=== PATIENT | male | born 1950 | race Asian ===

== ENCOUNTER 2022-01-10 01:45 | Inpatient (IN) | payer MEDICARE, OTHER ==
[~2022-01-10] VITALS: Ht 160 cm; Wt 65.8 kg
[2022-01-10] MEDS ORDERED: ASPIRIN 325 MG TABLET ONE (01:53)
--- NOTE | 2022-01-10 01:57 | NUR ---
[id number] from home, c/o generalized weakness x 3hrs SHANK ARCHER, BLE edema/swelling. On room air, breathing evenly and unlabored. Connected to the monitor and pulse ox. Kept comfortable, will continue to monitor accordingly.
[2022-01-10] MEDS ORDERED: ASPIRIN 325 MG TABLET PO ONE (02:00)
--- NOTE | 2022-01-10 02:13 | NUR ---
covid swab collected and sent to lab.
[2022-01-10 02:45] LABS: BASOPHILS % (AUTO) 0.4 % (0.0-2.0); EOSINOPHILS % (AUTO) 0.9 % (0.0-6.0); HEMATOCRIT 32 % (39-51); HEMOGLOBIN 10.7 g/dL (13.5-17.5); LYMPHOCYTES # (AUTO) 1.1 K/uL (0.8-4.8); MEAN CORPUSCULAR HGB CONC 33 g/dl (31.0-36.0); MEAN CORPUSCULAR VOLUME 87 fL (80-96); MONOCYTES # (AUTO) 0.7 K/uL (0.1-1.30); MONOCYTES % (AUTO) 7.5 % (2.0-12.0); NEUTROPHILS # (AUTO) 7.6 K/uL (1.8-8.9); NEUTROPHILS % (AUTO) 79.2 % (43.0-81.0); PLATELET COUNT (AUTO) 399 K/uL (150-450); RED BLOOD CELL COUNT(AUTO) 3.68 MIL/uL (4.5-6.0); WHITE BLOOD COUNT (AUTO) 9.5 K/uL (4.3-11.0)
[2022-01-10 02:46] LABS: CARBON DIOXIDE 32 mmol/L (21-32); CHLORIDE 97 mmol/L (98-107); CREATININE 2.1 mg/dL (0.6-1.3); GLUCOSE 154 mg/dL (74-106); SODIUM SERUM 136 mmol/L (136-145); UREA NITROGEN, BLOOD 19 mg/dL (7-18)
--- NOTE | 2022-01-10 03:09 | NUR ---
[facility] PAGED
[2022-01-10] MEDS ORDERED: FUROSEMIDE 40 MG/4 ML VIAL ONE (03:27)
[2022-01-10] MEDS ORDERED: FUROSEMIDE 40 MG/4 ML VIAL IV ONE (03:30)
[2022-01-10] MEDS ORDERED: Z GUARD REMEDY 4 OZ OINT TP PRN ×2 (04:00→16:00)
[2022-01-10] MEDS ORDERED: ONDANSETRON HCL/PF 4 MG/2 ML VIAL IVP PRN ×2 (04:00→16:00)
[2022-01-10] MEDS ORDERED: ACETAMINOPHEN 325 MG TABLET PO PRN ×2 (04:00→16:00)
[2022-01-10] MEDS ORDERED: POTASSIUM CHLORIDE 20 MEQ TAB.PRT.SR PO ONE ×2 (04:00→04:11)
[2022-01-10] MEDS ORDERED: DEXTROSE 50%-WATER 50 ML DISP.SYRIN IV PRN ×2 (04:00→16:00)
--- NOTE | 2022-01-10 07:51 | NUR ---
ROOM GIVEN 315-9
--- NOTE | 2022-01-10 07:56 | NUR ---
PT REPORT GIVEN TO BENEDICT BENAVIDEZ
[2022-01-10 08:00] VITALS: BP 137/62
--- NOTE | 2022-01-10 08:44 | NUR ---
PT TRANSFERRED TO 315-[address] [facility] ACLS PROTOCOL. WARM HANDOFF GIVEN TO BENEDICT BENAVIDEZ.
[2022-01-10] MEDS: BLOOD SUGAR DIAGNOSTIC 1 EACH STRIP IN SCH ×4 (08:58→22:20)
[2022-01-10] MEDS ORDERED: HEPARIN SODIUM, PORCINE 5000 UNITS/1 ML VIAL SQ SCH (09:00)
[2022-01-10] MEDS: PANTOPRAZOLE 40 MG TABLET.DR PO SCH (09:00)
--- NOTE | 2022-01-10 09:00 | NUR ---
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 PATIENT IS ALERT AND ORIENTED X4, VERBALLY RESPONSIVE, NO SIGNS OF ACUTE DISTRESS. PATIENT ON ROOM AIR, NOTED WITH SOB WITH EXERTION. SPO2 98% ON ROOM AIR. DENIES ANY PAIN AT THIS TIME. NOTED WITH LEFT WRIST #20G PERIPHERAL LINE, PATENT AND INTACT, FLUSHES WELL. PLACED PATIENT ON TUBING OILER CURRENTLY SHOWING SINUS TACH, HR @ 110. BODY ASSESSMENT DONE. NOTED WITH BLOOD GLUCOSE MONITORING PATCH ON LEFT DELTOID. NOTED WITH EDEMA ON LEFT FOOT AND DRY SCABS. ALSO NOTED WITH LEFT LEG RASH WITH DRY SKIN. WOUND CARE CONSULT ORDERED. ROUTINE ADMISSION CARE RENDERED. VITAL SIGNS TAKEN. ORIENTED PATIENT TO STAFF AND ROOM. WILL CONTINUE TO MONITOR PATIENT.
[2022-01-10] MEDS: INSULIN REGULAR, HUMAN 100 UNIT/ML 3 ML VIAL SQ PRN ×3 (09:03→16:34)
[2022-01-10] MEDS ORDERED: LINA5TAB PO (09:23)
[2022-01-10] MEDS ORDERED: EMPA10TA PO (09:23)
[2022-01-10] MEDS ORDERED: ATOR40TA PO (09:23)
[2022-01-10] MEDS ORDERED: CLON0.1T PO (09:23)
[2022-01-10] MEDS ORDERED: DILT180T11 PO (09:23)
[2022-01-10] MEDS ORDERED: ISOS30TA86 PO (09:23)
[2022-01-10] MEDS ORDERED: FURO20TA4 PO (09:23)
[2022-01-10] MEDS ORDERED: HYDR100T27 PO (09:23)
[2022-01-10] MEDS ORDERED: POTA10TA10 PO (09:23)
[2022-01-10] MEDS ORDERED: CARV6.252 PO (09:23)
[2022-01-10] MEDS ORDERED: ALBU18HF2 INH (09:24)
[2022-01-10 10:55] LABS: ABG OXYGEN SATURATION 96.4 % (92.0-98.5); ABG PCO2 38.7 mmHg (35.0-45.0); ABG PH 7.501 (7.350-7.450); ABG PO2 88.2 mmHg (75.0-100.0); AaDO2 65.8 mmHg; MetHb 0.2 % (0.0-1.5); O2Hb 96.2 % (94.0-97.0); SITE, ABG Right Radial; VENT MODE, BG 2L NC
[2022-01-10] MEDS ORDERED: IV D5/ 0.9% NACL 1,000 ML IV PRN (11:00)
[2022-01-10] MEDS: methylPREDNISolone SOD SUCC 125 MG/2ML VIAL IV SCH ×2 (11:04→16:14)
[2022-01-10] MEDS: LEVOFLOXACIN 500 MG /D5W 100ML 100 ML IV SCH (11:22)
[2022-01-10] MEDS: IPRATROPIUM NEB FS 0.5 MG/2.5 ML AMPUL.NEB NEB SCH ×4 (11:30→23:35)
[2022-01-10] MEDS ORDERED: *INSULIN REGULAR(HUMULIN R)HUM 100 UNIT/ML VIAL SQ PRN (16:00)
[2022-01-10] MEDS ORDERED: CLONIDINE HCL 0.1 MG TABLET PO PRN (16:00)
[2022-01-10] MEDS: hydrALAZINE HCL 50 MG TABLET PO SCH (16:16)
[2022-01-10] MEDS: CARVEDILOL 6.25 MG TABLET PO SCH (16:16)
[2022-01-10] MEDS: ALBUTEROL FS 2.5 MG/0.5 ML VIAL.NEB NEB SCH ×2 (16:21→20:15)
[2022-01-10] MEDS ORDERED: BLOOD SUGAR DIAGNOSTIC 1 EACH STRIP VI SCH (17:30)
--- NOTE | 2022-01-10 18:54 | NUR ---
RN CLOSING NOTE PATIENT IN BED AWAKE, A/O X4, VERBALLY RESPONSIVE NO SIGNS OF ACUTE DISTRESS NOTED. CURRENTLY ON ROOM AIR, TOLERATING WELL. NOTED WITH SOB UPON EXERTION, ENCOURAGED PATIENT TO USE OXYGEN IF NEEDED FOR SOB. IV ACCESS ON LEFT WRIST INTACT AND PATENT, WITH D5NS @ 75 ML/HR RUNNING. ALL DUE MEDS GIVEN, TAKEN WELL. SAFETY MEASURE MAINTAINED, BED IN LOWEST AND LOCKED POSITION, SIDE RAILS UP X2, CALL LIGHT PLACED WITHIN EASY REACH. WILL ENDORSE TO NEXT SHIFT FOR CONTINUITY OF CARE.
--- NOTE | 2022-01-10 19:30 | NUR ---
RN OPENING NOTE RECEIVED PATIENT IN BED, WITH HOB ELEVATED, ALERT AND ORIENTED X4. ABLE TO MAKE NEEDS KNOWN. AFEBRILE AND NOT IN ANY FORM OF ACUTE DISTRESS. BREATHING EVEN AND NON LABORED. NO C/O PAIN OR DISCOMFORT AT THIS TIME. ON TELE MONITORING SR 64. WITH IV ACCESS ON L WRIST 20G RUNNING WITH D5NS AT 75ML/HR. SAFETY MEASURES IN PLACE. KEPT BED IN LOCKED AND IN LOW POSITION. SIDE RAILS UP X2. ADVISE YO USE THE CALL LIGHT WHEN IN NEED OF ASSISTANCE.
[2022-01-10 20:00] VITALS: BP 151/60
[2022-01-10] MEDS ORDERED: ENOXAPARIN SODIUM 30 MG/0.3 ML DISP.SYRIN SQ SCH (21:00)
[2022-01-10] MEDS ORDERED: TEMAZEPAM 7.5 MG CAPSULE PO PRN (22:30)
[2022-01-11] VITALS: BP 147/71
[2022-01-11] MEDS: IPRATROPIUM NEB FS 0.5 MG/2.5 ML AMPUL.NEB NEB SCH ×4 (04:01→15:30)
--- NOTE | 2022-01-11 04:02 | NUR ---
pt recvd awake and verbal on room air, no sob or respiratory distress noted throughout shift. Neb tx given and misael well.
[2022-01-11 05:00] VITALS: BP 146/76
[2022-01-11 05:14] LABS: ABG BASE EXCESS 3.9 mmol/L; ABG PCO2 36.6 mmHg (35.0-45.0); ABG PH 7.491 (7.350-7.450); ABG PO2 71.8 mmHg (75.0-100.0); COHb 0.3 % (0.5-1.5); MetHb 0.2 % (0.0-1.5); O2Hb 93.5 % (94.0-97.0); SITE, ABG Right Radial; VENT MODE, BG ROOM AIR
[2022-01-11] MEDS ORDERED: ATORVASTATIN 40 MG TABLET PO SCH (06:00)
[2022-01-11] MEDS: BLOOD SUGAR DIAGNOSTIC 1 EACH STRIP IN SCH ×2 (06:30→12:01)
[2022-01-11] MEDS: INSULIN REGULAR, HUMAN 100 UNIT/ML 3 ML VIAL SQ PRN ×2 (06:37→12:06)
--- NOTE | 2022-01-11 07:09 | NUR ---
RN CLOSING NOTE PATIENT IN BED, WITH HOB ELEVATED, ALERT AND ORIENTED X4. ABLE TO MAKE NEEDS KNOWN. AFEBRILE AND NOT IN ANY FORM OF ACUTE DISTRESS. BREATHING EVEN AND NON LABORED. NO C/O PAIN OR DISCOMFORT AT THIS TIME. ON TELE MONITORING SR 70S WITH PAC. WITH IV ACCESS ON L WRIST 20G RUNNING WITH D5NS AT 75ML/HR. SAFETY MEASURES IN PLACE. KEPT BED IN LOCKED AND IN LOW POSITION. SIDE RAILS UP X2. ADVISE YO USE THE CALL LIGHT WHEN IN NEED OF ASSISTANCE. WILL ENDORSE CARE TO DAY SHIFT NURSE.
--- NOTE | 2022-01-11 07:30 | NUR ---
RN OPENING NOTE RECEIVED PATIENT IN BED, WITH HOB ELEVATED, ALERT AND ORIENTED X4. ABLE TO MAKE NEEDS KNOWN. AFEBRILE AND NOT IN ANY FORM OF ACUTE DISTRESS. BREATHING EVEN AND NON LABORED. NO C/O PAIN OR DISCOMFORT AT THIS TIME. ON TELE MONITORING SR . WITH IV ACCESS ON L WRIST 20G INTACT. SAFETY MEASURES IN PLACE. KEPT BED IN LOCKED AND IN LOW POSITION. SIDE RAILS UP X2. WILL CONTINUE TO MONITOR.
[2022-01-11] MEDS: ALBUTEROL FS 2.5 MG/0.5 ML VIAL.NEB NEB SCH ×3 (07:46→15:30)
[2022-01-11] MEDS: PANTOPRAZOLE 40 MG TABLET.DR PO SCH (07:49)
[2022-01-11 07:52] LABS: BASOPHILS % (AUTO) 0.1 % (0.0-2.0); CALCIUM, SERUM 9.7 mg/dL (8.5-10.1); CREATININE 2.3 mg/dL (0.6-1.3); HEMATOCRIT 33 % (39-51); HEMOGLOBIN 10.8 g/dL (13.5-17.5); LYMPHOCYTES # (AUTO) 0.9 K/uL (0.8-4.8); LYMPHOCYTES % (AUTO) 9.4 % (20.0-44.0); MEAN CORPUSCULAR HGB CONC 33 g/dl (31.0-36.0); MEAN CORPUSCULAR VOLUME 88 fL (80-96); MONOCYTES # (AUTO) 0.5 K/uL (0.1-1.30); MONOCYTES % (AUTO) 4.9 % (2.0-12.0); NEUTROPHILS # (AUTO) 8.5 K/uL (1.8-8.9); NEUTROPHILS % (AUTO) 85.6 % (43.0-81.0); PHOSPHORUS 3.9 mg/dL (2.5-4.9); PLATELET COUNT (AUTO) 378 K/uL (150-450); POTASSIUM 3.8 mmol/L (3.5-5.1); RED BLOOD CELL COUNT(AUTO) 3.78 MIL/uL (4.5-6.0)
[2022-01-11] MEDS ORDERED: DILTIAZEM HCL CD 180 MG PO SCH (09:00)
[2022-01-11] MEDS ORDERED: LINAGLIPTIN 5 MG TABLET PO SCH (09:00)
[2022-01-11] MEDS ORDERED: FUROSEMIDE 20 MG TABLET PO SCH (09:00)
[2022-01-11] MEDS ORDERED: POTASSIUM CHLORIDE 10 MEQ TABLET.SA PO SCH (09:00)
[2022-01-11] MEDS ORDERED: ISOSORBIDE MONONITRATE (30MG) 30 MG TAB.SR.24H PO SCH (09:00)
[2022-01-11] MEDS: CARVEDILOL 6.25 MG TABLET PO SCH (09:35)
[2022-01-11 09:36] VITALS: BP 149/95
[2022-01-11] MEDS: hydrALAZINE HCL 50 MG TABLET PO SCH (09:36)
[2022-01-11] MEDS: methylPREDNISolone SOD SUCC 125 MG/2ML VIAL IV SCH (09:37)
[2022-01-11] MEDS: LEVOFLOXACIN 500 MG /D5W 100ML 100 ML IV SCH (10:41)
--- NOTE | 2022-01-11 16:00 | NUR ---
RN NOTES DISCHARGE PATIENT IN STABLE CONDITION WITH STABLE VITAL SIGNS. NO PAIN NOTED. NO SOB NOTED. NO DISTRESS NOTED. ALL NEEDS ATTENDED. PATIENT CLEARED BY PULMONOLOGY AND CARDIOLOGY. TAMIR AMOR AGREES TO SEND HIM HOME. NO DISCHARGE SUMMERY. 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 ALL THE BELONGINGS ACCOUNTED AND SIGNED FOR. ALL THE DISCHARGE INSTRUCTIONS LIKE FOLLOWING UP WITH NEPHROLOGY IN A WEEK AND PCP FOLLOW UP GIVEN TO THE PATIENT. IV SITE REMOVED COVERED WITH DRY DRESSING. ID BAND REMOVED. WALKED WITH THE PATIENT TO THE [facility] . PATIENT LEFT HOSPITAL AT 1600 IN STABLE CONDITION. MICHELLE AMOR AND SAM CHARGE NURSE AWARE OF THE DISCHARGE.
[2022-01-11] MEDS ORDERED: ASPI-1420 PO (17:55)
[2022-01-11] MEDS ORDERED: AZIT1PAC9 PO (17:55)
[2022-01-11] MEDS ORDERED: PRED20TA PO (17:55)
== END 2022-01-11 16:55 | disposition home or self-care (01) | DRG 193 ==
LOC: ER 01:51 → TELE 08:14
PROVIDERS: ADMIT Nurse Practitioner Acute Care; ATTEND Nurse Practitioner Acute Care
DX: J15.9 Unspecified bacterial pneumonia (principal); I50.33 Acute on chronic diastolic (congestive) heart failure; N17.0 Acute kidney failure with tubular necrosis; I13.0 Hypertensive heart and chronic kidney disease with heart failure and stage 1 through stage 4 chronic kidney disease, or unspecified chronic kidney disease; Z20.822 Contact with and (suspected) exposure to COVID-19; Z98.61 Coronary angioplasty status; I25.10 Atherosclerotic heart disease of native coronary artery without angina pectoris; E11.22 Type 2 diabetes mellitus with diabetic chronic kidney disease; N18.9 Chronic kidney disease, unspecified; E87.6 Hypokalemia; J45.909 Unspecified asthma, uncomplicated; E78.5 Hyperlipidemia, unspecified; Z87.891 Personal history of nicotine dependence
CPT/HCPCS: 36415; 36600; 71045-TC; 76770-TC; 80048-TC; 80061-TC; 82803-TC; 82962-TC; 83735-TC; 83880; 84100-TC; 84484-TC; 85025-TC; 87081-TC; 93307-TC; 94799-TC; C9803; G0378; J1644; J1650; J1815; J1940; J1956; J2930; J7042